=== PATIENT | female | born 1980 | race Caucasian/White ===

== ENCOUNTER 2017-09-16 19:03 | Emergency (ER) | payer BC ==
[~2017-09-16] VITALS: Ht 167.6 cm; Wt 124.3 kg
[~2017-09-16 19:03] MED LIST: COMBIVENT RESPIM4 GM IH; DAILY VITE1 EAC1 PO; DILAUDID2 MG PO; FLOVENT 11120 INHALA IH; FLUTICASONE PRO16 GM BOTH NARES; IRON 100-VITAM1 EACH PO; IRON325 M1 PO; KETOROLAC TROME10 MG PO; MAGNESIUM 300300 MG PO; MEGA MULTI FOR1 EACH PO; METOCLOPRAM5 MG/1 M1 PO; MOTRIN800 MG PO; PREDNISONE20 MG PO; PROAIR HFA8.5 GM IH; PROBIOTIC1 EAC2 PO; STRATTERA100 MG PO; TESSALON200 MG PO; TRAMADOL HCL50 MG PO; TRANSDERM-SCO1 PATCH TD; ULTRAM50 MG PO; VALACYCLOVIR500 MG PO; VALTREX50 MG/ML PO
[2017-09-16] MEDS ORDERED: PREDNISONE50 MG PO (21:04)
[2017-09-16] MEDS ORDERED: EPIPEN ADU0.3 MG/0.3 IM (21:05)
[2017-09-16 21:20] VITALS: BP 139/91
== END 2017-09-16 21:21 | disposition home or self-care (01) ==
LOC: EME 19:03
DX: T78.40XA Allergy, unspecified, initial encounter (principal); J45.901 Unspecified asthma with (acute) exacerbation; I10 Essential (primary) hypertension; F32.9 Major depressive disorder, single episode, unspecified; Z87.891 Personal history of nicotine dependence; Z90.710 Acquired absence of both cervix and uterus; Z88.1 Allergy status to other antibiotic agents; Z88.5 Allergy status to narcotic agent; Z88.6 Allergy status to analgesic agent
CPT/HCPCS: 94640; 99281; 99285; J7512

== ENCOUNTER 2018-02-11 11:29 | Emergency (ER) | payer OTHER, BC ==
[~2018-02-11] VITALS: Ht 165.1 cm; Wt 126.8 kg
[~2018-02-11 11:29] MED LIST changes: +EPIPEN ADU0.3 MG/0.3 IM; +PREDNISONE50 MG PO
[2018-02-11] MEDS ORDERED: REGLAN10 MG PO (12:16)
[2018-02-11 12:48] VITALS: BP 118/88
== END 2018-02-11 12:50 | disposition home or self-care (01) ==
LOC: EME 11:29
DX: F07.81 Postconcussional syndrome (principal); Y04.8XXA Assault by other bodily force, initial encounter; Y99.0 Civilian activity done for income or pay; Y07.59 Other non-family member, perpetrator of maltreatment and neglect; J45.909 Unspecified asthma, uncomplicated; Z88.1 Allergy status to other antibiotic agents; Z88.5 Allergy status to narcotic agent; Z88.6 Allergy status to analgesic agent
CPT/HCPCS: 99281; 99284